=== PATIENT | female | born 1990 ===

== ENCOUNTER 2017-03-12 15:23 | Emergency (ER) | payer MEDICAID ==
[2017-03-12 15:35] VITALS: BP 141/91; PULSE 100; RESP 18; TEMP 98.8; O2SAT 99
--- NOTE | 2017-03-12 15:46 | ED PDOC ---
Lower Extremity Pain/Injury Time Seen by Provider: 03/12/17 15:34 Chief Complaint (Nursing): Lower Extremity Problem/Injury Chief Complaint (Provider): Left leg injury History Per: Patient History/Exam Limitations: no limitations Onset/Duration Of Symptoms: Hrs Current Symptoms Are (Timing): Still Present Additional Complaint(s): Patient is a 26 y/o female with no significant past medical history presenting to the emergency department for a small laceration to her left thigh with no active bleeding that she noticed just prior to arrival. Patient states she does not know what caused the cut or how it happened but she states it occurred just prior to arrival. She denies any other injuries or medical complaints. PCP: Laila Cui Past Medical History Reviewed: Historical Data, Nursing Documentation, Vital Signs Vital Signs: Last Vital Signs Temp 98.8 F 03/12/17 15:32 Pulse 100 H 03/12/17 15:32 Resp 18 03/12/17 15:32 BP 141/91 H 03/12/17 15:32 Pulse Ox 99 03/12/17 15:32 - Medical History PMH: No Chronic Diseases - Surgical History Surgical History: No Surg Hx - Family History Family History: States: No Known Family Hx - Living Arrangements Living Arrangements: With Family - Social History Current smoker - smoking cessation education provided: No Ex-Smoker (has not smoked in the last 12 months): No Alcohol: None Drugs: Denies - Immunization History Hx Tetanus Toxoid Vaccination: No (not sure of last tetanus) Hx Influenza Vaccination: No Hx Pneumococcal Vaccination: No - Home Medications Home Medications: Ambulatory Orders Medication Instructions Recorded No Known Home Med 05/18/16 - Allergies Allergies/Adverse Reactions: Allergies Allergy/AdvReac Type Severity Reaction Status Date / Time No Known Allergies Allergy Verified 05/18/16 21:57 Review of Systems ROS Statement: Except As Marked, All Systems Reviewed And Found Negative Musculoskeletal: Positive for: Other (left leg laceration) Physical Exam - Reviewed Nursing Documentation Reviewed: Yes Vital Signs Reviewed: Yes - Physical Exam Appears: Positive for: Well, Non-toxic, No Acute Distress Head Exam: Positive for: ATRAUMATIC, NORMAL INSPECTION, NORMOCEPHALIC Skin: Positive for: Normal Color. Negative for: Rash Cardiovascular/Chest: Positive for: Regular Rate, Rhythm Respiratory: Positive for: Normal Breath Sounds Extremity: Positive for: Other (1 cm superficial laceration to left anterior thigh with no active bleeding, full rom left lower extremity) Neurologic/Psych: Positive for: Alert, Oriented (x3) - Laboratory Results Urine POC: Negative (patient refused, states she is certain she is not ) - ECG O2 Sat by Pulse Oximetry: 99 (RA) Pulse Ox Interpretation: Normal Medical Decision Making Medical Decision Making: Time: 15:43 Initial impression: Laceration on left anterior thigh with no active bleeding Initial plan: Tetanus booster 0.5 mL IM Bandage/superficial wound care 16:00 Tetanus booster given without incident. Patient refused to allow ED staff to clean wound but she was given bacitracin and bandage. Patient states she prefers to clean wound once she gets home. 16:10 Patient left before discharge instructions were given. Scribe Attestation: Documented by Shefali Wright, acting as a scribe for NIRU Bartlett. Provider Scribe Attestation: All medical record entries made by the Scribe were at my direction and personally dictated by me. I have reviewed the chart and agree that the record accurately reflects my personal performance of the history, physical exam, medical decision making, and the department course for this patient. I have also personally directed, reviewed, and agree with the discharge instructions and disposition. Disposition - Clinical Impression Clinical Impression: Leg laceration, Requires a booster tetanus, Left before treatment completed - Patient ED Disposition Is Patient to be Admitted: No - Disposition Disposition: Eloped (Patient eloped from ED before being given disharge instructions) Disposition Time: 16:51 Condition: UNKNOWN Forms: [employer] ([place])
== END 2017-03-12 17:14 | disposition home or self-care (01) ==
LOC: H.ER 15:23
DX: S71.112A Laceration without foreign body, left thigh, initial encounter (principal); W26.8XXA Contact with other sharp object(s), not elsewhere classified, initial encounter; Y92.89 Other specified places as the place of occurrence of the external cause